=== PATIENT | female | born 2000 | race Caucasian/White ===

== ENCOUNTER 2025-04-20 21:44 | Emergency (ER) | payer SELFPAY ==
[2025-04-20] MEDS ORDERED: Ibuprofen 200 MG TAB ONE (23:40)
== END 2025-04-20 23:56 | disposition home or self-care (01) ==
LOC: CSHERS 21:44
DX: M54.50 Low back pain, unspecified (principal); E03.9 Hypothyroidism, unspecified; Z79.890 Hormone replacement therapy
CPT/HCPCS: 99283